=== PATIENT | female | born 1980 | race Caucasian/White ===

== ENCOUNTER 2017-05-08 12:20 | Inpatient (IN) | payer OTHER ==
[~2017-05-08] VITALS: Wt 88.5 kg
[~2017-05-08 12:20] MED LIST: Docusate Sodium PO; Hydrocodone/Acetaminophen PO; Ibuprofen PO; NFD30TCR PO
[2017-05-08] MEDS ORDERED: Ondansetron 2 mg/mL 2 mL Inj ONE (15:10)
[2017-05-08] MEDS ORDERED: Phenylephrine/NS 100 mCg/mL 10 mL Syringe IVPUSH ONE (15:10)
[2017-05-08] MEDS ORDERED: Oxytocin 10 Unit/mL Inj ONE (15:10)
[2017-05-08] MEDS ORDERED: fentaNYL-PF 50 mCg/mL 2 mL Inj ONE (15:10)
[2017-05-08] MEDS ORDERED: Morphine PF 1 mg/mL 10 mL Inj ONE (15:10)
[2017-05-08] MEDS ORDERED: Sodium Citrate-Citric Acid 15 mL Solution PO ONE (15:40)
[2017-05-08] MEDS ORDERED: Lidocaine 2% 5 mL Topical Jelly MUC_MEMBRM SCH (15:40)
[2017-05-08] MEDS ORDERED: CEFAZOLIN IV SCH (15:40)
[2017-05-08] MEDS ORDERED: SODIUM CHLORIDE 0.9% IV SCH (15:40)
[2017-05-08] MEDS ORDERED: Hemorrhage Kit, Post Partum XX PRN (15:40)
[2017-05-08] MEDS ORDERED: CeFAZolin 2 Gm/50 mL D5W Duplex Bag IV ONE (15:57)
[2017-05-08 16:52] LABS: Mean Corpuscular Hemoglobin 28.2 pg (27.0-35.0); Mean Corpuscular Volume 83.3 fL (81-100)
[2017-05-08] MEDS ORDERED: Atropine 0.4 mg/mL Inj IV PRN (18:00)
[2017-05-08] MEDS ORDERED: Lactated Ringer's 1,000 ML IV PRN (18:00)
[2017-05-08] MEDS ORDERED: EPHEDrine Sulfate 50 mg/mL Inj IVPUSH PRN (18:00)
[2017-05-08] MEDS ORDERED: fentaNYL-PF 50 mCg/mL 2 mL Inj IVPUSH PRN (18:00)
--- NOTE | 2017-05-08 18:00 | PCM.HPANE ---
Patient Data Date of Service: May 08, 2017 Surgeon Admitting Provider:Carson Sebastian MD Attending Provider:Carson Sebastian MD Primary Care Physician:Brittani Anne MD Other Provider:Prabha Gradyingham Anesthesia Reason for Visit Term C/S TERM C/S Ht/WT & BMI Body Mass Index Allergies Coded Allergies: venom-honey bee (Unverified Allergy, Severe, anaphylaxis, 10/24/14) Past Anesthesia History Anesthesia History: Denies:: Abnormal Airway, Anesthesia Reactions, Difficult Intubation, Fam Anesthesia Reaction, Fam Malignant Hypertherm, Malignant Hyperthermia Medications Active Scripts Nifedipine ER (Procardia XL)30 Mg [id number] Mg PO BID #14 TABLET Ref 0 Prov:Xavier Forrester MD 01/07/17 [Ibuprofen] (Motrin)600 MG TABLET No Conflict [id number] Mg PO Q6H PRN For Mild Pain #30 TABLET Ref 1 Prov:Carson Sebsatian MD 10/25/14 [Hydrocodone/Acetaminophen] ([place] 5-325)1 TAB TABLET No Conflict Check1-2 Tab PO Q4H PRN For Pain #30 TABLET Prov:Carson Sebastian MD 10/25/14 [Docusate Sodium] (Colace)100 MG CAPSULE No Conflict [id number] Mg PO BID #30 CAPSULE Ref 1 Prov:Carson Sebastian MD 10/25/14 History History of ENT Problems?: No HEENT History: Denies:: Abnormal Airway Cataracts Difficult Intubation Dysphagia Glaucoma Hearing Problem Sinus Problem TMJ Denture Type: None Teeth Condition: Within Normal Limits Hx of Heart Problems?: No Cardiovascular History: Denies:: AICD Abdominal Aortic Aneurism Atrial Fibrillation Cardiac Surgery Chest Pain Congestive Heart Failure Coronary Artery Disease Edema Heart Murmur Hypertension Irregular Heartbeat Pacemaker Peripheral Vascular Rheumatic Fever Thrombophlebitis Valvular Heart Disease Hx of Respiratory Problem?: No Respiratory History: Denies:: Asthma COPD Chest Surgery Cough Dyspnea Emphysema Hemoptysis Oxygen Administration Pneumonia Pulmonary Embolism Tuberculosis Use of C-PAP Machine Use of Inhalers / NEBS Hx Neurologic Problems?: No Hx of GI Problems?: No Hx of Problems?: No Female Hx: Positive for:: Currently Hx Musculoskeletal Problems?: No Hx of Psycho/Social Problems?: No Hx Surgeries?: No Hx Any Other Health Problems?: No Smoking Status: Former Smoker Stop/Bang COURTNEY Risk Assessment: Low Risk, <3 Yes Risk Assessment Category Category 1A: Patient has history of documented sleep apnea, and HAS NOT received any narcotic, sedative or anesthesia administration during this stay. Category 1B: Patient has history of documented sleep apnea, and HAS received any narcotic , sedative or anesthesia administration during this stay Category 2: Patient has SUSPECTED Obstructive Sleep Apnea, and HAS received any narcotic , sedative or anesthesia administration during this stay. Category 3: Patient has SUSPECTED Obstructive Sleep Apnea and HAS NOT received narcotic, sedative or anesthesia administration during this stay. Category 4: Outpatient in Procedural Areas with known sleep apnea or who screen positive for High Risk via the STOP/BANG questionnaire. Exam Exam General Appearance: Alert, Oriented X3, Cooperative, No Acute Distress HEENT/AIRWAY: MP 2 Lungs: Clear to Auscultation, Normal Air Movement Heart: Exam Unremarkable, Regular Rate/Rhythm, No Murmurs/Rubs/Gallops Additional Information gravid abdomen; normal appearing L-spine, retained ROM C-sp. Meds/Labs/Diagnostics Admission Meds Current Medications Lactated Ringer's (Lr) 1,000 ml @ 900 mls/hr Q1H7M IV Last administered on 05/08 16:48; Start 05/08/17 at 15:40; Stop 05/08/17 at 16:46; Status DC Citric Acid/ Sodium Citrate (Bicitra) 15 ml ONCE ONCE PO Last administered on 05/08/17 16:48; Start 05/08/17 at 15:40; Stop 05/08/17 at 15:41; Status DC Labs Test 05/08/17 16:37 White Blood Count 15.7th/mm3 (3.8-10.1) Red Blood Count 4.50mil/mm3 (3.90-5.20) Hemoglobin 12.7g/dL (12.0-15.6) Hematocrit 37.5% (35.0-46.0) Mean Corpuscular Volume 83.3fL (81-100) Mean Corpuscular Hemoglobin 28.2pg (27.0-35.0) Mean Corpuscular Hemoglobin Concent 33.9% (32.0-37.0) Red Cell Distribution Width 13.1% (12.3-15.4) Platelet Count 137bil/L (150-400) Plan Impression Patient chart reviewed, patient interviewed and anesthestic plan with risks, benefits, and alternatives discussed, and informed consent obtained. NPO per Anesth. Guidelines: Yes ASA Physical Status: ASA2 Mod Systemic Disease Anesthetic Plan: GA Bene/Risks/Altern/Consents: Yes HP Complete Prior to Induction: Yes Other Pt denies lumbosacral radiculopathy, Hx anticoagulant use, Hx coagulopathy. Onel Hernandez DO May 08, 2017 18:00
[2017-05-08] MEDS ORDERED: Lactated Ringer's 1,000 ML IV SCH (18:51)
[2017-05-08] MEDS ORDERED: LANOlin HPA 7 Gm Ointment TOPICAL PRN (18:55)
[2017-05-08] MEDS ORDERED: Methylergonovine 0.2 mg/mL Inj IM PRN (18:55)
[2017-05-08] MEDS ORDERED: Oxytocin 10 Unit/mL Inj IM PRN (18:55)
[2017-05-08] MEDS ORDERED: Hemorrhage Kit, Post Partum XX ONE (18:55)
[2017-05-08] MEDS ORDERED: Oxytocin 30 Units/500 mL LR 30 UNITS in IV Premix 1 EACH IV PRN (18:55)
[2017-05-08] MEDS ORDERED: Carboprost 250 mCg/mL Inj IM PRN (18:55)
[2017-05-08] MEDS ORDERED: Measles-Mumps-Rubella Vaccine 0.5 mL Inj SUBQ ONE (18:55)
[2017-05-08] MEDS ORDERED: TdaP Vaccine 0.5 mL Inj IM ONE (18:55)
[2017-05-08] MEDS ORDERED: Influenza (Adult) Vaccine 0.5 mL Syringe IM ONE (18:55)
[2017-05-08] MEDS: Acetaminophen IV 1,000 MG in IV Premix 1 EACH IV PRN (19:50)
[2017-05-08] MEDS: HYDROmorphone 1 mg/mL Inj IVPUSH PRN ×2 (21:05→21:54)
[2017-05-08] MEDS: Sodium Chloride LOK Flush 10 mL Syringe IVFLUSH PRN ×2 (21:05→21:54)
[2017-05-09] MEDS ORDERED: CeFAZolin Inj 2 GM in IV Premix 1 EACH IV SCH (00:30)
[2017-05-09] MEDS: Acetaminophen IV 1,000 MG in IV Premix 1 EACH IV PRN (02:14)
[2017-05-09] MEDS: HYDROmorphone 1 mg/mL Inj IVPUSH PRN (04:12)
[2017-05-09] MEDS: Sodium Chloride LOK Flush 10 mL Syringe IVFLUSH PRN (04:12)
[2017-05-09] MEDS ORDERED: CeFAZolin 2 Gm/50 mL D5W IV Premix IV ONE (06:00)
[2017-05-09 07:51] LABS: Mean Corpuscular Hemoglobin 28.7 pg (27.0-35.0)
[2017-05-09] MEDS: hydrOXYzine Pamoate 25 mg Capsule PO PRN ×2 (08:11→16:16)
[2017-05-09] MEDS: oxyCODONE-Acetamin 5-325 mg Tablet PO PRN ×4 (08:12→20:31)
--- NOTE | 2017-05-09 08:45 | HP ---
[address] [address] HISTORY AND PHYSICAL PATIENT: ANAYELI ROGEL : 1980 MR#: [id number] ADMIT: 05/08/2017 JOB ID: [id number] DATE: 05/08/2017 The patient is a 37-year-old G 2, P 1, AB 0 woman followed prenatally per Dr. Lm Anne. He has recently noted breech presentation of fetus near term and sent patient to my office for consultation. After a very thorough discussion of pros and cons and benefits and risks of external version effort versus section for breech, patient ultimately decided to undergo delivery as she was uncomfortable with external version. She has understood the risks of to include bleeding, infection, injury to the urinary tract and bowel, anesthetic risks, etc. She knows that there can be blood clots in the legs and in the lungs, wound problems, postoperative pain, etc. She has had all of her questions answered, no guarantees have been stated or implied, and she has signed informed consent for the procedure. In summary, then, the patient, with due date May 13, 2017, placing the patient at 38-2/7 weeks of gestation on admission, has requested scheduled section, although reversible contraception planned (ParaGuard IUD). PHYSICAL EXAMINATION: On admission weight 196 pounds. Blood pressure 126/78. Neck: No thyromegaly. Lungs clear to auscultation and percussion. Heart: Regular in rate and rhythm. Abdomen: Fundal height consistent with term. Positive heartbeat. Pelvic examination deferred. IMPRESSION: 1. A 39 and 2/7 weeks . 2. Recently identified breech presentation, with patient requesting delivery as opposed to external version effort. 3. Reproductive history--prior vaginal delivery, plus current . 4. Prior ParaGard intrauterine device use, planning to return to the same. 5. See records and other clinic and hospital documents and Dr. Anne's notes for additional diagnoses. PLAN: The patient will be admitted to [facility] on May 08, 2017 on which day she will have confirmatory bedside ultrasound to identify persistent breech, then to perform a primary delivery at her request as opposed to external version effort. Reversible contraception is planned with ParaGard IUD, thus no tubal ligation.
[2017-05-10] MEDS: oxyCODONE-Acetamin 5-325 mg Tablet PO PRN ×4 (00:34→16:36)
[2017-05-10] MEDS: hydrOXYzine Pamoate 25 mg Capsule PO PRN ×4 (00:35→14:12)
--- NOTE | 2017-05-10 07:20 | PCM.ANEP1 ---
Post Anesthesia PACU Phase 1 Assessment Date of Service: May 08, 2017 Anesthetic Administered: SAB Level of Alertness: Awake, talking RODARTE's with Equal Strength: Yes (Apparent resolution of sensorimotor block) Pain: Yes (Hydromorphone ordered following conference with RN) Pain Scale Score: 3 Nausea or Vomiting: No CV Function & Hydration Stable: Yes Airway Device: Oxygen Delivery: Room Air Lungs: Clear to Auscultation, Normal Air Movement Dermatome Level: Full Sensation PACU Phase 2 Assessment Complications: No Patient Instructions Provided: N/A Onel Hernandez DO May 10, 2017 07:20
--- NOTE | 2017-05-10 17:43 | PCM.DIOB ---
Obstetrical Disch Instruction Dates of Hospitalization Date of Hospital Admission May 08, 2017 at 15:09 Providers Admitting Physician: Carson Sebastian MD Primary Care Physician: Brittani Anne MD Attending Physician: Carson Sebastian MD Discharge Diagnosis Problems: (1) Onset Date: 10/24/2014 Status: Acute ICD Code: Z33.1 (2) Breech presentation Status: Acute ICD Code: O32.1XX0 Diet Discharge Diet: No restrictions Activity Discharge Activity-General: Pelvic Rest for 6 weeks, No lifting >10 pounds for 4-6 weeks Dressing and Incisional Care Dressing Care: Allow Steri Stripes to fall off Hygiene: May shower, DO NOT soak incision under water, NO bathtub, hot tub or whirlpool Follow Up Plan Follow-up appointment: Weeks (Followup in 2 and 6 weeks at [facility] for postoperative checkups.) Call your provider for: Fever or Chills, Shortness of breath, Heavy vaginal bleeding, Red painful breasts Carson Sebastian MD May 10, 2017 17:42
[2017-05-10] MEDS ORDERED: OXYC1TAB24 PO (17:47)
[2017-05-10] MEDS ORDERED: IBUP-1827 PO (17:47)
[2017-05-10] MEDS ORDERED: DOCU-41 PO (17:47)
[2017-05-10] MEDS ORDERED: HYDR-3797 PO (17:49)
[2017-05-10 18:24] VITALS: BP 109/66; PULSE 84; RESP 16
--- NOTE | 2017-05-10 20:06 | OP ---
[address] [address] OPERATIVE REPORT PATIENT: ANAYELI ROGEL : 1980 MR#: [id number] ADMIT: 05/08/2017 JOB ID: [id number] DATE OF SURGERY: 05/09/2017 SURGEON: Carson Sebastian MD CERTIFIED ADAPTIVE PHYSICAL EDUCATOR: Lm Anne MD ANESTHESIA: Spinal. PREOPERATIVE DIAGNOSIS(ES): 1. Term . 2. Breech presentation with patient request for delivery. POSTOPERATIVE DIAGNOSIS(ES): 1. Term . 2. Breech presentation with patient request for delivery. PROCEDURES PERFORMED: Primary low transverse section. FINDINGS AT SURGERY: The fetus was in breech presentation. Amniotic fluid was clear. was active and crying and vigorous on the operative field. Fallopian tubes and ovaries were normal in appearance. There was some increased bleeding related to uterine atony and hypervascularity of the lower uterine segment, although there was no internal bleeding occurring at any site at procedure's close. Urine was clear during the case and at procedure's close. It certainly is anticipated that mother and baby will do very well in the timeframe. Note that with finding of double moderately tight nuchal cord, and with umbilical cord then draped long and around the body, it certainly appears to have been a culver decision to do an elective section or breech delivery as opposed to external version effort. PROCEDURE IN DETAIL: The patient was placed in supine position on the operating table and after activation of spinal anesthesia. She was then repositioned in a left lateral tilt position and Vazquez catheter was placed. Abdomen was then prepped and draped in the usual sterile manner and an appropriate time-out was taken after testing for adequate skin anesthesia. was then brought into the room and the Pfannenstiel incision was made through the skin, subcutaneous tissues, and fascial layer. This incision was carried further with separation of the rectus muscles from the overlying fascia using blunt and sharp dissection, followed by separation of the rectus muscles in the midline and entrance into the peritoneal cavity. Intra-abdominal contents were inspected and then a transverse incision was made in the vesicouterine peritoneal fold and lower uterine segment. Bladder flap was developed and uterine incision was carried down to the amniotic sac, which was then ruptured and clear greenish fluid was recovered. I did not see any particles. Breech was then brought through the incision, followed by the body and extremities, and then the head easily. Baby was active and crying and vigorous on the operative field. After one minute of delay, the umbilical cord was clamped and cut and cord blood was obtained for routine studies as baby was taken over to the warmer for further nurse management. Placenta with membranes was then massaged from the uterus, intact. Uterine cavity was gauze curettaged and cervix was noted to be sufficiently open to allow blood/lochia to pass. The uterine incision was then closed in a running, locking manner using #1 chromic suture with complete hemostasis achieved. A second overlying running stitch of #1 chromic suture was placed for extra uterine wall support. Hemostasis was once again noted to be complete. The ovaries and tubes were inspected, followed by irrigation and suctioning of blood, clots, and fluid from the applications support analyst cul-de-sac region. The uterus was then returned to the abdominal cavity and blood, clots, and fluid were all cleared from the gutter areas. Final uterine wall inspection demonstrated no bleeding sites and bladder was uninvolved and urine was clear. Instrument, needle, and sponge counts were all found to be correct. The rectus muscles were then drawn together across the midline using interrupted stitches of #1 chromic suture. The subfascial plane was inspected and light cautery applied where needed. The fascial layer was then closed in a running manner using #1 PDS, with great care given to bury the knot on each side. Subcutaneous tissues were irrigated and cautery applied where needed and the skin incision was closed with markus. The uterus was expressed of blood and clots. Pressure dressing was placed. All procedures were complete. The patient was then taken to her room for recovery. ESTIMATED BLOOD LOSS: 600 mL, reflecting a somewhat atonic uterus that ultimately contracted well. COMPLICATIONS: None. PROGNOSIS: Good for surgical recovery.
--- NOTE | 2017-05-11 07:09 | PROG NOTE ---
[address] [address] PROGRESS NOTE PATIENT: ANAYELI ROGEL : 1980 MR#: [id number] ADMIT: 05/08/2017 JOB ID: [id number] POSTOPERATIVE DAY NUMBER ONE PROGRESS NOTE: DATE: 05/09/2017 The patient underwent primary section on May 08, 2017, in the setting of term with breech presentation. During the postoperative/ timeframe, the patient has done well, with stable vitals, afebrile, with reasonable bleeding, with acceptable pain control, voiding and ambulating, without leg pain or shortness of breath, and handling baby well. PLAN: Continue postoperative/ care, anticipate discharge to home, anticipating discharge to home tomorrow, i.e. on May 10, 2017. ELLEN
--- NOTE | 2017-05-13 10:28 | DIS ---
[address] [address] DISCHARGE SUMMARY PATIENT: ANAYELI ROGEL : 1980 MR#: [id number] ADMIT: 05/08/2017 JOB ID: [id number] DIS: 05/10/2017 DATE OF DISCHARGE: 05/10/2017 DISCHARGE DIAGNOSES: 1. Term , delivered. 2. Breech presentation. 3. Status post scheduled primary section at patient's request in the setting of breech presentation. PROCEDURES PERFORMED DURING HOSPITALIZATION: 1. Primary low transverse section. 2. Spinal anesthesia. HOSPITAL COURSE: This patient is [facility] 08, 2017, on which day she underwent primary low transverse section under spinal anesthesia. During the postop/ timeframe, patient did very well with stable vitals, remaining afebrile, with reasonable bleeding and pain management, without incisional problem, without leg pain or shortness of breath, ambulating and voiding, and handling baby well. Note that the patient was interested in discharge to home on the second postoperative/ day and her request was granted. DISCHARGE PROGRAM: Patient will call p.r.n., otherwise will follow up at two weeks for incision check and at six weeks for final postoperative/ checkup. She will observe pelvic rest and not do any heavy lifting for six weeks. DISCHARGE MEDICATIONS: 1. Oxycodone-acetaminophen 5/325. 2. Ibuprofen 600. 3. Hydroxyzine 25 mg. 4. Docusate sodium 100 mg. Prescriptions written. Note also that patient will continue to use vitamin at home, of which she has a supply. Sinan were discontinued prior to discharge, with benzoin and half-inch Steri-Strip application.
== END 2017-05-10 18:50 | disposition home or self-care (01) | DRG 766 ==
LOC: FBC 15:09 → EDSTATUS 17:00
PROVIDERS: ADMIT Obstetrics & Gynecology; ATTEND Obstetrics & Gynecology
PROC: 10D00Z1 Extraction of Products of Conception, Low, Open Approach (ICD-10-PCS; principal; 2017-05-09)
DX: O32.1XX0 Maternal care for breech presentation, not applicable or unspecified (principal); Z3A.39 39 weeks gestation of pregnancy; Z37.0 Single live birth; O69.81X0 Labor and delivery complicated by cord around neck, without compression, not applicable or unspecified